=== PATIENT | male | born 1940 | race Caucasian/White ===

== ENCOUNTER → 2017-11-24 | Emergency (ER) | payer OTHER ==
[~2017-11-24] VITALS: Ht 180.3 cm; Wt 89.4 kg
[~2017-11-24] MED LIST: COZAAR100 MG; LEVOTHYROXINE25 MCG; SIMVASTATIN20 MG
== END | disposition home or self-care (01) ==
LOC: ER 19:14
DX: H81.10 Benign paroxysmal vertigo, unspecified ear (principal)

== ENCOUNTER 2018-01-01 09:35 | Emergency (ER) | payer OTHER ==
[~2018-01-01] VITALS: Ht 177.8 cm; Wt 89.4 kg
== END 2018-01-01 11:10 | disposition home or self-care (01) ==
LOC: ER 09:35
DX: M54.31 Sciatica, right side (principal); M25.551 Pain in right hip

== ENCOUNTER 2019-01-12 15:26 | Emergency (ER) | payer OTHER ==
[~2019-01-12] VITALS: Ht 180.3 cm; Wt 89.4 kg
[2019-01-12] MEDS ORDERED: ZOLOFT25 MG PO (16:06)
== END 2019-01-12 19:34 | disposition home or self-care (01) ==
LOC: ER 15:26
DX: J06.9 Acute upper respiratory infection, unspecified (principal)

== ENCOUNTER 2020-11-17 07:52 | Inpatient (IN) | payer OTHER ==
[~2020-11-17] VITALS: Ht 177.8 cm; Wt 88.5 kg
[~2020-11-17 07:52] MED LIST changes: +ZOLOFT25 MG PO
--- NOTE | 2020-11-17 07:55 | NUR ---
SE RECIBE PTE LETARGICO EN AMBULANCIA CON H/L COLOCADO POR PERSONAL PARAMEDICO. PARAMEDICOS REFIEREN TRAER A PTE POR SOB, PTE CON NON REBREATHER MASK AL 100% COLOCADO. SE OBSERVAN RESPIRACIONES ABDOMINALES. SE MIDEN S/V A PTE Y SE DOCUMENTAN LOS MISMOS. SE REALIZAR EKG A PTE Y SE COLOCA EN UNIDAD DE CHEST PAIN.
[2020-11-17] MEDS ORDERED: NEURONTIN300 MG (08:17)
[2020-11-17] MEDS ORDERED: TOPROL XL25 M1 (08:17)
[2020-11-17] MEDS ORDERED: TRAZODONE HCL150 MG (08:17)
--- NOTE | 2020-11-17 08:44 | NUR ---
SE RECIBE PTE EN COMPANIA DE PARAMEDICO Y FAMILIAR PTE ALERTA Y CONCIENTE POR 3 SE UBICA PTE EN EL CUBICULO #16 DE LA UNIDAD DE CENTRO DE DOLOR DE PECHO SE CONECTA A MONITOR CARDIACO Y OXYMETRIA DE PULSO, SE ORIENTA PTE Y FAMILIAR SOBRE LAS VICKY DE LA UNIADA Y SOBRE EL TRATAMIENTO ORDENADO POR EL DR ORTEZ SE REALIZIAN MUESTRAS DE LABORATORIO Y SE NOTIFICA A LA TERAPISTA CHEEMA SOBRE ABG Y TERAPIAS. PTE SE MANTIENE EN OBSERVACION Y BAJO TRATAMIENTO.
--- NOTE | 2020-11-17 09:36 | NUR ---
SE REPITE LABORATORIA PT, PTT Y D DIMMER. SE INSERTA JASMINE #16 POR MISS DELATORRE BAJ MEDIDAS ASEPTICAS Y ESTERILES. SE MELANIE UA Y UC LUEGO DEL LA INCERCION DEL JASMINE. SE MANTIENE PACIENTE EN OBSERVACION.
--- NOTE | 2020-11-17 11:40 | NUR ---
NOTIFICADO TERAPIAS RESPIRATORIOAS A LA TERAPISTA CHEEMA
--- NOTE | 2020-11-17 11:45 | NUR ---
SE OBSERVA PTE CON DIFICULTA RESPIRATORIA SE NOTIFCA AL DR ORTEZ QUE PTE TIENE LAS PRESIONES MARIA A Y LA SATURACION 90% SE EJECUATAN ORDENES MEDICAS Y SE VUELVEN A REPETIR MUESTRAS DE LABORATARIO. PTE AL MOENTO EN COMPANIA DE WEN FALIR Y LA TERAPISTA DE JEUSU. SE OBSERVA EL MONITO Y SE OBSERVA PTE BAJANDO PULSO 43HR, SATURACION 60% Y NO RESPONDE AL LLAMADO. 12:15PM SE MEREDITH CLAVE CHUNG Y SE COMIENZA A VENTILAR CON AMBU EL PTE COMIENZA A RESPONDER CON LAS VENTILACIONES ASISTIDA EL DR ORTEZ ORDENA QUE SE COLOQUE BIPAP POR EL PERSONAL DE TERAPIA. SE ORIENTA A LOS FAMILARES SOBRE EL TRATAMIENTO REALIZADO. PTE SE MANTIENE EN OBSERVACION Y BAJO TRATAMIENTO. SE REALIZAN ABG POR TERAPISTA CHEEMA Y SE CAMBIA LOS PARAMETROS DEL BIPAP IPA-16 EPAP-6 FO2 70% PTE SE MANTIENE EN OBSERVACION Y BAJO TRATAMIENTO EN ESPERAE DEL DR DECKER.
--- NOTE | 2020-11-17 15:58 | NUR ---
SE RECIBE PACIENTE MASCULINO DE 80 ANOS DE EDAD.PACIENTE LETARGICO,DESORIENTADO PACIENTE ACOMPANADO DE FAMILIAR.PACIENTE CON DIFICULTAD RESPIRATORIA.SE ENCUENTRA CONECTADO A MONITOR CARDIACO,CON UN BIPAP,JASMINE Y CANALIZADO EN AMBOS BRAZOS.SE MARTHA SIGNOS VITALES. SKIN TEAM PASO A EVALUARLO. SE LE COLOCO PROTECCION PARA LA AREAS DE PRECION.PARA EVITAR LAS ULCERAS.PACIENTE CONSULTADO CON EL .SE MANTIENE EN LA ESPERA DE SER EVALUADO POR EL.SE MANTIENE BAJO OBSERVACION POR CAMBIOS SIGNIFICATIVOS.
[2020-11-17] MEDS ORDERED: SIMVASTATIN5 MG PO (19:18)
[2020-11-17] MEDS ORDERED: SIMVASTATIN80 MG PO (19:19)
== END 2020-11-24 16:23 | disposition expired | DRG 189 ==
LOC: ER 07:52 → ICU 19:23
PROVIDERS: ADMIT Internal Medicine; ATTEND Internal Medicine
PROC: 4A033R1 Measurement of Arterial Saturation, Peripheral, Percutaneous Approach (ICD-10-PCS; principal; 2020-11-17)
PROC: 5A09457 Assistance with Respiratory Ventilation, 24-96 Consecutive Hours, Continuous Positive Airway Pressure (ICD-10-PCS; 2020-11-17)
PROC: B24BZZZ Ultrasonography of Heart with Aorta (ICD-10-PCS; 2020-11-19)
PROC: 4A12X4Z Monitoring of Cardiac Electrical Activity, External Approach (ICD-10-PCS; 2020-11-19)
DX: J96.01 Acute respiratory failure with hypoxia (principal); E87.1 Hypo-osmolality and hyponatremia; I48.91 Unspecified atrial fibrillation; Z20.822 Contact with and (suspected) exposure to COVID-19; R31.9 Hematuria, unspecified